=== PATIENT | male | born 1945 | race Caucasian/White ===

== ENCOUNTER 2016-08-01 08:31 | Inpatient (IN) | payer MEDICARE, BC ==
[2016-08-01] MEDS ORDERED: Dextrose 5%-Lactated Ringers 1,000 ML IV SCH (08:45)
[2016-08-01] MEDS ORDERED: ceFAZolin 2 GM in Sodium Chloride 0.9% 100 ML IV ONE (09:45)
[2016-08-01] MEDS ORDERED: Naloxone 0.4 MG/ML SDV IVPUSH PRN (11:24)
[2016-08-01] MEDS ORDERED: HYDROmorphone/Normal Saline 15 MG/30 ML PCA IV PRN (11:24)
[2016-08-01] MEDS ORDERED: Neostigmine Methylsulfate 1 MG/ML 5 ML Syringe ONE (11:48)
[2016-08-01] MEDS ORDERED: Ondansetron 4 MG/2 ML SDV ONE (11:48)
[2016-08-01] MEDS ORDERED: Propofol 200 MG/20 ML SDV ONE (11:48)
[2016-08-01] MEDS ORDERED: Dexamethasone 4 MG/ML SDV ONE (11:48)
[2016-08-01] MEDS ORDERED: Succinylcholine/Normal Saline 200 MG/10 ML Syringe ONE (11:48)
[2016-08-01] MEDS ORDERED: fentaNYL 250 MCG/5 ML SDV ONE ×2 (11:48→12:39)
[2016-08-01] MEDS ORDERED: Rocuronium 50 MG/5 ML Vial ONE (11:48)
[2016-08-01] MEDS: ceFAZolin 2 GM in Sodium Chloride 0.9% 50 ML IV ONE ×2 (13:23→17:36)
[2016-08-01] MEDS ORDERED: Midazolam 1 MG/ML 2 ML SDV ONE (13:30)
[2016-08-01] MEDS ORDERED: Lactated Ringers 1,000 ML ONE (13:50)
[2016-08-01] MEDS ORDERED: Naloxone 0.4 MG/ML SDV ONE (15:38)
[2016-08-01] MEDS ORDERED: Ondansetron 4 MG/2 ML SDV IV PRN (16:53)
[2016-08-01] MEDS ORDERED: LORazepam 0.5 MG Tab PO PRN (16:55)
[2016-08-01] MEDS: Magnesium Sulfate/Water 2 GM in Premix Bag 1 BAG IV SCH ×2 (17:55→23:21)
[2016-08-01] MEDS: Dextrose 5%-Lactated Ringers 1,000 ML IV SCH (17:56)
[2016-08-01] MEDS: ceFAZolin 2 GM in Sodium Chloride 0.9% 50 ML IV SCH (21:22)
[2016-08-01] MEDS ORDERED: Labetalol 20 MG/4 ML Syringe IVPUSH PRN (21:36)
[2016-08-02] MEDS: Dextrose 5%-Lactated Ringers 1,000 ML IV SCH ×3 (01:02→19:19)
[2016-08-02] MEDS: ceFAZolin 2 GM in Sodium Chloride 0.9% 50 ML IV SCH ×2 (04:37→14:58)
[2016-08-02] MEDS: Magnesium Sulfate/Water 2 GM in Premix Bag 1 BAG IV SCH ×4 (05:57→23:04)
[2016-08-02] MEDS ORDERED: Acetaminophen/HYDROcodone 325-5 MG Tab PO PRN (07:14)
[2016-08-02] MEDS ORDERED: Acetaminophen 325 MG Tab PO PRN (07:18)
[2016-08-02] MEDS ORDERED: Hydrochlorothiazide 25 MG Tab PO SCH (09:00)
[2016-08-02] MEDS: Doxazosin 4 MG Tab PO SCH (09:21)
[2016-08-02] MEDS: Losartan 50 MG Tab PO SCH (09:22)
--- NOTE | 2016-08-02 11:02 | PN ---
DATE OF SERVICE: 08/02/2016 SUBJECTIVE: Lucius reports his pain is controlled. The most pain he has had is in his right arm at the IV site. Vital signs have been stable. Calcium this morning was 11.8, down from 14 prior to surgery. He denies any tingling in his perioral area. Pain is controlled. Blood pressure has been slightly elevated with the highest being 156/96. This has come down nicely. He is voiding without difficulty. REVIEW OF SYSTEMS: Remainder of review of systems negative for any pertinent positives and negatives. OBJECTIVE: GENERAL: Lucius Bautista is a pleasant 71-year-old male. VITAL SIGNS: TPR is 96.8, 69, 16, blood pressure is 129/82. HEENT: Pressure dressing remains to be over his incision site around his neck. The dressing was left on for closer to 24 hours. Voice is strong. There is no hoarseness. HEART: Regular rate and rhythm. LUNGS: Clear. EXTREMITIES: There is no peripheral edema. ASSESSMENT: Parathyroid exploration with resection of left segment of parathyroid adenoma with frozen section for first-degree parathyroid adenoma involving left segment of the parathyroid gland, date of surgery 08/01/2016. PLAN: Discontinue DATA COLLECTION TECHNICIAN, discontinue continuous pulse ox. Check CMP in a.m. [place] 5/325 mg 1 to 2 every 4 hours p.r.n. pain. On regular diet. May choose what he wants, but no hard and crunchy foods. On Tylenol 650 mg q.6 hours p.r.n. lesser pain. Dressing off. We will evaluate p.r.n. or in a.m. Piper Scott PA-C /[id number]
[2016-08-03] MEDS: Dextrose 5%-Lactated Ringers 1,000 ML IV SCH (05:21)
[2016-08-03] MEDS: Magnesium Sulfate/Water 2 GM in Premix Bag 1 BAG IV SCH ×4 (05:22→18:07)
[2016-08-03] MEDS ORDERED: Calcium Carbonate 500 MG Tab.Chew PO PRN (07:57)
[2016-08-03] MEDS: Doxazosin 4 MG Tab PO SCH (08:49)
[2016-08-03] MEDS: Pantoprazole 40 MG Tab.CR PO SCH (08:50)
[2016-08-03] MEDS: Losartan 50 MG Tab PO SCH (08:50)
[2016-08-03] MEDS: Phosphorus #1 250 MG Tab PO SCH ×3 (10:06→21:03)
--- NOTE | 2016-08-03 14:01 | PCM.PN ---
- General Info Date of Service: 08/03/16 - Review of Systems General: Reports: No Symptoms HEENT: Reports: no symptoms Pulmonary: Reports: no symptoms Cardiovascular: Reports: No Symptoms Gastrointestinal: Reports: No symptoms Genitourinary: Reports: no symptoms Musculoskeletal: Reports: no symptoms Skin: Reports: no symptoms - Patient Data Vitals - most recent: Last Vital Signs Temp 98.1 F 08/03/16 11:13 Pulse 72 08/03/16 11:13 Resp 18 08/03/16 11:13 BP 125/79 08/03/16 11:13 Pulse Ox 98 08/03/16 11:13 Weight - most recent: 145 lb I&O - last 24 hours: Intake & Output 08/02/16 08/03/16 08/03/16 22:59 06:59 14:59 Intake Total 1302 1428 639 Output Total 1450 1025 350 Balance -148 403 289 Lab Results last 24 hrs: Laboratory Results - last 24 hr 08/03/16 Range/Units 04:25 Sodium 145 (140-148) mmol/L Potassium 3.5 L (3.6-5.2) mmol/L Chloride 111 H (100-108) mmol/L Carbon Dioxide 25 (21-32) mmol/L Anion Gap 12.5 (5.0-14.0) mmol/L BUN 13 (7-18) mg/dL Creatinine 1.5 H (0.8-1.3) mg/dL Est Cr Clr Drug Dosing 43.24 mL/min Estimated GFR (MDRD) 46 L (>60) Glucose 108 H (74-106) mg/dL Calcium 10.5 H (8.5-10.1) mg/dL Phosphorus 2.5 (2.5-4.9) mg/dL Magnesium 2.7 H (1.8-2.4) mg/dL Total Bilirubin 0.6 (0.2-1.0) mg/dL AST 23 (15-37) U/L ALT 20 (12-78) U/L Alkaline Phosphatase 56 (46-116) U/L Total Protein 5.5 L (6.4-8.2) g/dL Albumin 2.7 L (3.4-5.0) g/dL Globulin 2.8 (2.3-3.5) g/dL Albumin/Globulin Ratio 1.0 L (1.2-2.2) Med Orders - Current: Current Medications Acetaminophen (Tylenol) 650 mg PO Q4H PRN PRN Reason: Pain Hydrocodone Bitart/Acetaminophen ([place] 325-5 Mg) 1 - 2 tab PO Q4H PRN PRN Reason: Pain Calcium Carbonate/Glycine (Tums) 500 mg PO ASDIRECTED PRN PRN Reason: HEARTBURN Doxazosin Mesylate (Cardura) 4 mg PO DAILY [facility] Last Admin: 08/03/16 08:49 Dose: 4 mg Dextrose/Lactated Ringer's (Dextrose 5%-Lactated Ringers) 1,000 mls @ 100 mls/ hr IV ASDIRECTED [facility] Last Admin: 08/03/16 05:21 Dose: 150 mls/hr Magnesium Sulfate 2 gm/ Premix 50 mls @ 25 mls/hr IV Q6H [facility] Stop: 08/04/16 13:59 Last Admin: 08/03/16 12:13 Dose: 25 mls/hr Labetalol HCl (Normodyne) 5 - 10 mg IVPUSH Q1H PRN; Protocol PRN Reason: Hypertension Lorazepam (Ativan) 0.5 mg PO Q6H PRN PRN Reason: ANXIETY Losartan Potassium (Cozaar) 50 mg PO DAILY [facility] Last Admin: 08/03/16 08:50 Dose: 50 mg Ondansetron HCl (Zofran) 4 mg IV Q4H PRN PRN Reason: N/V Pantoprazole Sodium (Protonix) 40 mg PO ACBREAKFAST [facility] Last Admin: 08/03/16 08:50 Dose: 40 mg Sodium Phosphate (Neutra-Phos) 500 mg PO QID [facility] Last Admin: 08/03/16 10:06 Dose: 500 mg Discontinued Medications Dexamethasone (Dexamethasone) Confirm Administered Dose 4 mg .ROUTE .STK-MED ONE Stop: 08/01/16 11:49 Fentanyl (Sublimaze) Confirm Administered Dose 250 mcg .ROUTE .STK-MED ONE Stop: 08/01/16 11:49 Fentanyl (Sublimaze) Confirm Administered Dose 500 mcg .ROUTE .STK-MED ONE Stop: 08/01/16 12:40 Glycopyrrolate () Confirm Administered Dose 1 mg .ROUTE .STK-MED ONE Stop: 08/01/16 11:49 Hydrochlorothiazide (Hydrochlorothiazide) 25 mg PO DAILY [facility] Last Admin: 08/02/16 09:22 Dose: 25 mg Hydromorphone HCl (Dilaudid Burn Nurse 15 Mg In Ns 30 Ml) 0 mg IV ASDIRECTED PRN; Protocol PRN Reason: Pain Last Admin: 08/01/16 12:58 Dose: 0.3 mg Dextrose/Lactated Ringer's (Dextrose 5%-Lactated Ringers) 1,000 mls @ 100 mls/ hr IV ASDIRECTED [facility] Last Admin: 08/01/16 09:50 Dose: 100 mls/hr Cefazolin Sodium 2 gm/ Sodium (Chloride) 50 mls @ 100 mls/hr IV ONETIME ONE Stop: 08/01/16 10:14 Last Admin: 08/01/16 17:36 Dose: Not Given Lactated Ringer's (Ringers, Lactated) Confirm Administered Dose 1,000 mls @ as directed .ROUTE .STK-MED ONE Stop: 08/01/16 13:51 Cefazolin Sodium 2 gm/ Sodium (Chloride) 50 mls @ 100 mls/hr IV Q8H VAN Stop: 08/02/16 13:29 Last Admin: 08/02/16 14:58 Dose: 100 mls/hr Midazolam HCl (Versed 1 Mg/Ml) Confirm Administered Dose 2 mg .ROUTE .STK-MED ONE Stop: 08/01/16 13:31 Naloxone HCl (Narcan) 0.1 mg IVPUSH Q2M PRN PRN Reason: Respiratory Distress Naloxone HCl (Narcan) Confirm Administered Dose 0.4 mg .ROUTE .STK-MED ONE Stop: 08/01/16 15:39 Neostigmine Methylsulfate (Neostigmine) Confirm Administered Dose 5 mg .ROUTE .STK-MED ONE Stop: 08/01/16 11:49 Ondansetron HCl (Zofran) Confirm Administered Dose 4 mg .ROUTE .STK-MED ONE Stop: 08/01/16 11:49 Propofol (Diprivan 20 Ml) Confirm Administered Dose 200 mg .ROUTE .STK-MED ONE Stop: 08/01/16 11:49 Rocuronium [place] (Zemuron) Confirm Administered Dose 50 mg .ROUTE .STK-MED ONE Stop: 08/01/16 11:49 Succinylcholine Chloride (Succinylcholine In Ns Pf) Confirm Administered Dose 200 mg .ROUTE .STBarnes & Noble-MED ONE Stop: 08/01/16 11:49 - Exam General: alert, oriented Lungs: Clear to auscultation, Normal respiratory effort Cardiovascular: Regular Rate, Regular Rhythm Abdomen: bowel sounds present, soft, no tenderness, no distension Extremities: no edema - Problem List Review Problem List Initiated/Reviewed/Updated: Yes - My Orders Last 24 Hours: My Active Orders 08/03/16 21:00 Potassium Chloride [Klor-Con M20] 20 meq PO BID - Plan Plan:: Assessment/Plan: #1. Hypercalcemia: Ca is down to 10.5. He has no complaints. S/P surgery condition stable. #2. Hypokalemia. Will supplement. #3. Hypertension. Stable. I stopped HCTZ
[2016-08-03] MEDS ORDERED: Magnesium Citrate Solution 296 ML Bottle PO ONE (18:04)
[2016-08-03] MEDS: Potassium Chloride 20 MEQ Tab.ER PO SCH (21:03)
[2016-08-04] MEDS: Phosphorus #1 250 MG Tab PO SCH (05:59)
[2016-08-04 07:24] VITALS: BP 139/84
[2016-08-04] MEDS: Pantoprazole 40 MG Tab.CR PO SCH (07:24)
[2016-08-04] MEDS: Doxazosin 4 MG Tab PO SCH (08:20)
[2016-08-04] MEDS: Losartan 50 MG Tab PO SCH (08:20)
[2016-08-04] MEDS: Potassium Chloride 20 MEQ Tab.ER PO SCH (08:21)
--- NOTE | 2016-08-04 09:11 | DISCH ---
ADMISSION DIAGNOSES: First-degree parathyroid adenoma, hypertension, anxiety, and hyperlipidemia. DISCHARGE DIAGNOSES: Parathyroid exploration with resection of left segment of parathyroid adenoma with frozen section for first-degree parathyroid adenoma involving left segment of the parathyroid gland. Date of surgery was 08/01/2016. HISTORY: Lucius Bautista is a 71-year-old male who presented to the clinic with elevated calcium. After preoperative evaluation and discussion of possible risks and possible complications, he wished to proceed with surgical procedure. HOSPITAL COURSE: Lucius had his surgery on 08/01/2016. He had no operative complications. On postop day 1, his potassium was 11.8; on postop day 2, it was 10.5; and on postop day 3, it was 10. His phosphorus was 2.2 and went down to 1.7, 2.5, and 3.9. Magnesium was 1.7. He has been active. Pain has been controlled. Feeling good. His voice is strong. There is no hoarseness noted. He is ready to be discharged to home on 08/04/2016. PHYSICAL EXAMINATION: GENERAL: Lucius Bautista is a 71-year-old male. VITAL SIGNS: Height is 5 feet 11 inches. Weight is 145 pounds. TPR 99.3, 66, 16, and blood pressure 139/84. HEENT: Negative. NECK: Incision, Steri-Strips are intact. There is no swelling, redness, or drainage at incision site. HEART: Regular rate and rhythm. LUNGS: Clear. ABDOMEN: Negative. EXTREMITIES: Negative for peripheral edema. DISPOSITION: Discharged to home. CONDITION: Stable and improving. FOLLOWUP APPOINTMENT: With Nehemiah Roman MD, at [facility], on 08/06/2016 at 9 a.m. He is to come at 8:15 for lab work to check a BMP, magnesium, and phosphorus, and see Dr. Roman at 9 a.m. HOME MEDICATIONS: Cardura 4 mg oral daily, Lasix 20 mg oral daily, Ativan 0.5 mg oral as directed p.r.n. anxiety, losartan (Cozaar) 25 mg daily, Klor-Con 20 mEq twice daily, and magnesium oxide 400 mg daily x1 month. DISCHARGE DIET: Usual diet as tolerated. Drink 8 to 10 glasses of water a day. ACTIVITY: No lifting greater than 10 pounds for 6 weeks. Shower/bathing, may shower. DISCHARGE INSTRUCTIONS: Notify provider for fever, increased pain, drainage, nausea, or vomiting. Wound incision care, keep site clean and dry. Special Instruction: If you develop any tingling around your mouth and lips, take 2 Tums every 2 hours until it goes away and call clinic at [phone].
--- NOTE | 2016-08-04 13:44 | PN ---
DATE OF SERVICE: 08/03/2016 The patient has been afebrile with stable vital signs. The calcium has come down to 10.4 today from 14 preoperatively, and overall, he is not having symptoms at this point. His phosphate is on the low side of. There is no IV phosphate available at this point, so we will give Neutra-Phos, a total of 8 tablets during 24 hours, each having 8 mL of phosphate, i.e he will actually be getting around 64 mL of that today. We will recheck calcium and phosphate in the morning. He will continue his magnesium supplementation. At this point, he certainly can be started on TUMS as needed for heartburn. We will also start him on Protonix. Nehemiah Roman MD /[id number]
--- NOTE | 2016-08-06 08:03 | OR ---
DATE OF PROCEDURE: 08/01/2016 PREOPERATIVE DIAGNOSIS: Primary hyperparathyroidism. POSTOPERATIVE DIAGNOSES: 1. Primary hyperparathyroidism with parathyroid adenoma involving left superior parathyroid gland. 2. Ectopic thyroid tissue, left lower neck, suggestive of thyroid adenoma on frozen section. OPERATIVE PROCEDURES: 1. Parathyroid exploration with;. a. Excision of left superior parathyroid adenoma (09588). b. Excision of ectopic thyroid tissue suggestive of adenoma on frozen section, left lower neck (13531). ANESTHESIA: General. CHUTE LOADER: Piper Scott PA-C and [employer] student. INDICATIONS FOR PROCEDURE: This is a 71-year-old presenting with a strikingly high calcium in 15 range with an intact parathyroid level of over 390. Workup for the site of this has thus far been negative. The plan is to proceed with a parathyroid exploration with, hopefully, identification of parathyroid adenoma and/or hyperplasia with surgical treatment as indicated. The extreme calcium and parathyroid hormone levels were suggestive of possibility of malignancy as well, although imaging has certainly not made that a likelihood. Potential risks including bleeding; infection; injury to the structures in the areas such as recurrent laryngeal nerve; possibility of persistent hyperparathyroidism or hypoparathyroidism postoperatively; along with remote possibility of cardiopulmonary, septic, or hemorrhagic complications leading to were discussed. Likewise, the possibility that the procedure may not be efficacious in terms of controlling the hyperparathyroidism, were gone over and the patient wishes to proceed. DETAILS OF PROCEDURE: The patient was taken to the operating room and placed in a supine position with the neck extended. The upper chest and neck areas were prepped and draped after general endotracheal anesthetic was induced. A transverse collar incision was made and carried down through the skin and subcutaneous tissues, into the platysma layers. Subplatysmal flaps were then raised superiorly and inferiorly, and the strap muscles were divided in the midline. Beginning on the left side, the inferior thyroid vein and inferior thyroid artery branches on to the midportion of the left thyroid lobe were divided with Harmonic scalpel. This allowed medial mobilization of that area of what appeared to be a probable parathyroid adenoma, there was a roughly a pear or grape-sized and reddish nodule. This was located distinctly apart from the thyroid gland, located somewhat lateral and inferior to the lower pole on the left side. This was excised using Harmonic scalpel and frozen section was suggestive of ectopic thyroid tissue containing adenomatous-type material. Bilateral frozen sections are being processed of what appeared to be a normal- appearing parathyroid in the left lobe area behind the thyroid gland was identified. As one dissected further up, there was an enlarged area of parathyroid tissue. This was of a size consistent with an adenoma and was excised with a Harmonic scalpel. Frozen section on this was consistent with hyperplastic parathyroid tissue. One parathyroid on right side was subsequently dissected free and identified to be small and normal as well. At that point, it was felt best to not do further dissection so as to minimize postoperative hypoparathyroidism. The area of dissection was inspected and drainage was felt not to be necessary. The midline fascia was approximated with a 3-0 Vicryl stitch, the platysmal layer with 4-0 Vicryl stitch, and the skin with a 5-0 Vicryl subcuticular stitch. Steri- Strips were applied. The patient was taken to the recovery room in satisfactory condition. Physician office assistant, Piper Scott, played an essential role in assisting in this case, helping to position the patient, retract structures as needed, as well as suturing and cutting sutures when indicated. Her presence improved patient safety and decreased the operative time. Nehemiah Roman MD /[id number]
== END 2016-08-04 09:14 | disposition home or self-care (01) | DRG 627 ==
LOC: JP.SDS 08:31 → JP.SDSSCHI 08:31 → EDSTATUS 12:15 → JP.2SS 16:26
PROVIDERS: ADMIT Surgery; ATTEND Surgery
PROC: 0GBQ0ZX Excision of Multiple Parathyroid Glands, Open Approach, Diagnostic (ICD-10-PCS; principal; 2016-08-01)
PROC: 0GBM0ZZ Excision of Left Superior Parathyroid Gland, Open Approach (ICD-10-PCS; principal; 2016-08-01)
DX: D35.1 Benign neoplasm of parathyroid gland (principal); I10 Essential (primary) hypertension; F41.9 Anxiety disorder, unspecified; E78.5 Hyperlipidemia, unspecified; E87.6 Hypokalemia; E21.0 Primary hyperparathyroidism
CPT/HCPCS: 36415; 80048; 80053; 83735; 84100; 85027; 88305; 88331; 88333; 88334; 93005; A9270-GY; J0690; J1100; J1170; J2250; J2310; J2405; J2704; J3010; J3475; J7042; J7050; J7120

== ENCOUNTER 2018-08-05 07:43 | Day surgery (SDC) | payer BC, MEDICARE ==
[2018-08-05] MEDS ORDERED: fentaNYL 100 MCG/2 ML SDV ONE (08:23)
[2018-08-05] MEDS ORDERED: Midazolam 1 MG/ML 2 ML SDV ONE (08:23)
[2018-08-05] MEDS ORDERED: Propofol 200 MG/20 ML SDV ONE (08:23)
[2018-08-05] MEDS ORDERED: Sodium Chloride 0.9% 1,000 ML IV SCH (09:00)
--- NOTE | 2018-08-05 11:04 | PROC ---
DATE OF PROCEDURE: SURGEON: Fili Richter MD 08/05/2018 INDICATION: Lucius is a 73-year-old male, comes in for a colonoscopy. The risks and benefits were explained to the patient to have a colonoscopy. TECHNIQUE: Rectal exam reveals a prostate of grade 3/6, symmetrical and soft. No other obvious pathology noted. The tube was placed into the rectum, and we got to 15 cm. Were unable to advance the tube further. We then removed the scope and took off the endo cuff and put the scope back in, and we got through a narrowed area, where there were multiple diverticula. We advanced the scope, did get to the cecum. Upon retraction of the tube, we noted a few diverticula in the descending colon. At the site of the multiple diverticula, noted a 3-mm polyp. This was biopsied multiple times. Air was withdrawn from the colon, and the tube was removed. The patient tolerated the procedure well. PREOPERATIVE DIAGNOSIS: Screening colonoscopy. POSTOPERATIVE DIAGNOSIS: Diverticula and narrowed opening in the sigmoid colon, Polyp at rectum. Biopsy report pending. I will speak with him once the pathology report is completed. Fili Richter MD /[id number] MTDD
[2018-08-05 11:20] VITALS: BP 119/79
== END 2018-08-05 11:25 | disposition home or self-care (01) ==
LOC: JP.SDS 07:43
PROVIDERS: ATTEND Internal Medicine
DX: Z12.11 Encounter for screening for malignant neoplasm of colon (principal); D12.8 Benign neoplasm of rectum; K57.30 Diverticulosis of large intestine without perforation or abscess without bleeding; K56.699 Other intestinal obstruction unspecified as to partial versus complete obstruction; I10 Essential (primary) hypertension; F41.9 Anxiety disorder, unspecified
CPT/HCPCS: 45380; J2250; J2704; J3010; J7030

== ENCOUNTER 2018-11-22 14:39 | Emergency (ER) | payer MEDICARE ==
[2018-11-22] MEDS ORDERED: LORazepam 2 MG/ML SDV IVPUSH ONE (14:51)
--- NOTE | 2018-11-22 14:55 | EDM.PDOC ---
ED HPI GENERAL MEDICAL PROBLEM - General Chief Complaint: Cardiovascular Problem Stated Complaint: MEDICAL [facility] Time Seen by Provider: 11/22/18 14:40 Source of Information: Reports: Patient, EMS History Limitations: Reports: No Limitations - History of Present Illness INITIAL COMMENTS - FREE TEXT/NARRATIVE: 73 year old chronic alcoholic presents to ER after syncopal episode this am while taking out boats and d[place] this [place]. Patient was working with a friend and brother today. Patient states he takes a multi vitamin daily and did take this am. Patient believes he was sitting on the dock and slumped to the side. He denies any symptoms before passing out this afternoon, denies chest pain, SOB, headache but admits nausea and lightheadedness. Patient admits to drinking alcohol approximately 6 (double shots per day). Patient is due to chronic alcohol use. Patient denies any current symptoms or concerns at this time. Patient is obviously intoxicated with disconjugate daze , slurring speech and unsteady gait. Patient smells of alcohol and drink of choice is Vodka, no brand preference they are all the same. - Related Data Allergies Allergy/AdvReac Type Severity Reaction Status Date / Time No Known Allergies Allergy Verified 11/22/18 15:04 Home Meds: Home Meds Doxazosin [Cardura] 4 mg PO DAILY 07/31/16 [History] LORazepam [Ativan] 0.5 mg PO ASDIRECTED PRN 07/31/16 [History] Losartan [Cozaar] 50 mg PO DAILY 07/31/16 [History] Allopurinol [Zyloprim] 150 mg PO DAILY 08/03/18 [History] Past Medical History Cardiovascular History: Reports: Hypertension, SOB on Exertion Respiratory History: Reports: SOB Gastrointestinal History: Reports: None Musculoskeletal History: Reports: Gout Psychiatric History: Reports: Anxiety Endocrine/Metabolic History: Reports: Other (See Below) Other Endocrine/Metabolic History: thyroid" somthing wrong with" per pt - Infectious Disease History Infectious Disease History: Reports: Chicken Pox - Past Surgical History HEENT Surgical History: Reports: Oral Surgery, Tonsillectomy Cardiovascular Surgical History: Reports: None Respiratory Surgical History: Reports: None GI Surgical History: Reports: Colonoscopy, Hernia, Abdominal, Hernia Repair/ Other, Other (See Below) Other GI Surgeries/Procedures: with mesh Endocrine Surgical History: Reports: Thyroid Biopsy Musculoskeletal Surgical History: Reports: None Social & Family History - Caffeine Use Caffeine Use: Reports: None ED ROS GENERAL - Review of Systems Review Of Systems: ROS reveals no pertinent complaints other than HPI. ED EXAM, NEURO - Physical Exam Exam: See Below Exam Limited By: No Limitations General Appearance: Alert, Thin, Other (no pain, obviously intoxicated with slurred speech and insteady gait/movements. ) Eye Exam: Bilateral Eye: EOMI, PERRL Ears: Normal External Exam, Normal Canal, Hearing Grossly Normal, Normal TMs Nose: Normal Inspection, Normal Mucosa Throat/Mouth: Normal Inspection, Normal Lips, Normal Teeth, Normal Gums, Normal Oropharynx, Normal Voice, No Airway Compromise, Other (dry and erythematous ) Head Exam: Normocephalic Neck: Normal Inspection, Supple, Non-Tender, Full Range of Motion Respiratory/Chest: No Respiratory Distress, Lungs Clear, Normal Breath Sounds, No Accessory Muscle Use, Chest Non-Tender Cardiovascular: Normal Peripheral Pulses, Regular Rate, Rhythm GI/Abdominal: Normal Bowel Sounds, Soft, Non-Tender. No: Distended, Guarding, Rigid, Rebound, Tender Neurological: Alert, Normal Mood/Affect (intoxicated), CN II-XII Intact, No Motor/Sensory Deficits (focal but general delayed response and insteady movements ), Oriented x 3, Abnormal Gait, Abnormal Motor, Difficulty Walking. No: Straight Leg Raise (L), Straight Leg Raise (R) Back Exam: Normal Inspection, Full Range of Motion, NT Extremities: Normal Inspection, Normal Range of Motion, Non-Tender, No Pedal Edema, Normal Capillary Refill Psychiatric: Normal Affect (intoxicated), Normal Mood (jovial) Skin Exam: Warm, Dry, Intact, Normal Color, No Rash EKG INTERPRETATION EKG Date: 11/22/18 Time: 15:29 Rhythm: NSR Rate (Beats/Min): 84 [place]: Normal P-Wave: Present QRS: Normal ST-T: Normal QT: Normal Comparison: Change From Previous EKG (resoluted of ST elevated in lateral LEADS) *Q Meaningful Use (ADM) - VTE *Q VTE Mechanical Contraindications *Q: At Risk for Falls - VTE Risk Assess *Q Each Risk Factor Represents 2 Points: Age 60 - 74 Years Total Score 2 Point Risk Factors: 2 Course - Vital Signs Last Recorded V/S: Last Vital Signs Temp 36 C 11/22/18 15:02 Pulse 66 11/22/18 15:56 Resp 16 11/22/18 15:02 BP 155/71 H 11/22/18 15:56 Pulse Ox 98 11/22/18 15:56 - Orders/Labs/Meds Orders: Active Orders 24 hr Category Date Time Status Cardiac Monitoring [RC] .As Directed Care 11/22/18 14:48 Active EKG Documentation Completion [RC] ASDIRECTED Care 11/22/18 14:50 Active EKG 12 Lead [EK] Urgent Ther 11/22/18 14:49 Ordered Labs: Laboratory Tests 11/22/18 11/22/18 11/22/18 Range/Units 15:00 15:00 15:00 WBC 7.9 (4.5-11.0) K/uL RBC 3.84 L (4.30-5.90) M/uL Hgb 13.6 (12.0-15.0) g/dL Hct 39.6 L (40.0-54.0) % MCV 103 H (80-98) fL MCH 35 H (27-31) pg MCHC 34 (32-36) % Plt Count 203 (150-400) K/uL Neut % (Auto) 77 H (36-66) % Lymph % (Auto) 13 L (24-44) % [place] % (Auto) 9 H (2-6) % Eos % (Auto) 1 L (2-4) % Baso % (Auto) 0 (0-1) % D-Dimer, Quantitative 411 H (0.0-400.0) ng/mL Sodium 139 L (140-148) mmol/L Potassium 3.8 (3.6-5.2) mmol/L Chloride 104 (100-108) mmol/L Carbon Dioxide 25 (21-32) mmol/L Anion Gap 13.8 (5.0-14.0) mmol/L BUN 12 (7-18) mg/dL Creatinine 1.4 H (0.8-1.3) mg/dL Est Cr Clr Drug Dosing 48.13 mL/min Estimated GFR (MDRD) 50 L (>60) Glucose 98 (74-106) mg/dL Calcium 11.3 H (8.5-10.1) mg/dL Total Bilirubin 0.6 (0.2-1.0) mg/dL Direct Bilirubin 0.22 H (0.0-0.2) mg/dL Indirect Bilirubin 0.38 AST 107 H D (15-37) U/L ALT 89 H (12-78) U/L Alkaline Phosphatase 65 (46-116) U/L Troponin I (0.000-0.056) ng/mL Total Protein 6.8 (6.4-8.2) g/dL Albumin 3.6 (3.4-5.0) g/dL Globulin 3.2 (2.3-3.5) g/dL Albumin/Globulin Ratio 1.1 L (1.2-2.2) Lipase (73-393) U/L Urine Color (YELLOW) Urine Appearance (CLEAR) Urine pH (5.0-8.0) Ur Specific [place] (1.008-1.030) Urine Protein (NEGATIVE) mg/dL Urine Glucose (UA) (NEGATIVE) mg/dL Urine Ketones (NEGATIVE) mg/dL Urine Occult Blood (NEGATIVE) Urine Nitrite (NEGATIVE) Urine Bilirubin (NEGATIVE) Urine Urobilinogen (0.2-1.0) EU/dL Ur Leukocyte Esterase (NEGATIVE) Urine RBC (0-5) Urine WBC (0-5) Ur Epithelial Cells Amorphous Sediment Urine Bacteria Urine Mucus Urine Other Ethyl Alcohol mg/dL 11/22/18 11/22/18 11/22/18 Range/Units 15:00 15:00 15:00 WBC (4.5-11.0) K/uL RBC (4.30-5.90) M/uL Hgb (12.0-15.0) g/dL Hct (40.0-54.0) % MCV (80-98) fL MCH (27-31) pg MCHC (32-36) % Plt Count (150-400) K/uL Neut % (Auto) (36-66) % Lymph % (Auto) (24-44) % [place] % (Auto) (2-6) % Eos % (Auto) (2-4) % Baso % (Auto) (0-1) % D-Dimer, Quantitative (0.0-400.0) ng/mL Sodium (140-148) mmol/L Potassium (3.6-5.2) mmol/L Chloride (100-108) mmol/L Carbon Dioxide (21-32) mmol/L Anion Gap (5.0-14.0) mmol/L BUN (7-18) mg/dL Creatinine (0.8-1.3) mg/dL Est Cr Clr Drug Dosing mL/min Estimated GFR (MDRD) (>60) Glucose (74-106) mg/dL Calcium (8.5-10.1) mg/dL Total Bilirubin (0.2-1.0) mg/dL Direct Bilirubin (0.0-0.2) mg/dL Indirect Bilirubin AST (15-37) U/L ALT (12-78) U/L Alkaline Phosphatase (46-116) U/L Troponin I < 0.017 (0.000-0.056) ng/mL Total Protein (6.4-8.2) g/dL Albumin (3.4-5.0) g/dL Globulin (2.3-3.5) g/dL Albumin/Globulin Ratio (1.2-2.2) Lipase 223 (73-393) U/L Urine Color (YELLOW) Urine Appearance (CLEAR) Urine pH (5.0-8.0) Ur Specific [place] (1.008-1.030) Urine Protein (NEGATIVE) mg/dL Urine Glucose (UA) (NEGATIVE) mg/dL Urine Ketones (NEGATIVE) mg/dL Urine Occult Blood (NEGATIVE) Urine Nitrite (NEGATIVE) Urine Bilirubin (NEGATIVE) Urine Urobilinogen (0.2-1.0) EU/dL Ur Leukocyte Esterase (NEGATIVE) Urine RBC (0-5) Urine WBC (0-5) Ur Epithelial Cells Amorphous Sediment Urine Bacteria Urine Mucus Urine Other Ethyl Alcohol 159 mg/dL 11/22/18 Range/Units 16:44 WBC (4.5-11.0) K/uL RBC (4.30-5.90) M/uL Hgb (12.0-15.0) g/dL Hct (40.0-54.0) % MCV (80-98) fL MCH (27-31) pg MCHC (32-36) % Plt Count (150-400) K/uL Neut % (Auto) (36-66) % Lymph % (Auto) (24-44) % [place] % (Auto) (2-6) % Eos % (Auto) (2-4) % Baso % (Auto) (0-1) % D-Dimer, Quantitative (0.0-400.0) ng/mL Sodium (140-148) mmol/L Potassium (3.6-5.2) mmol/L Chloride (100-108) mmol/L Carbon Dioxide (21-32) mmol/L Anion Gap (5.0-14.0) mmol/L BUN (7-18) mg/dL Creatinine (0.8-1.3) mg/dL Est Cr Clr Drug Dosing mL/min Estimated GFR (MDRD) (>60) Glucose (74-106) mg/dL Calcium (8.5-10.1) mg/dL Total Bilirubin (0.2-1.0) mg/dL Direct Bilirubin (0.0-0.2) mg/dL Indirect Bilirubin AST (15-37) U/L ALT (12-78) U/L Alkaline Phosphatase (46-116) U/L Troponin I (0.000-0.056) ng/mL Total Protein (6.4-8.2) g/dL Albumin (3.4-5.0) g/dL Globulin (2.3-3.5) g/dL Albumin/Globulin Ratio (1.2-2.2) Lipase (73-393) U/L Urine Color Yellow (YELLOW) Urine Appearance Clear (CLEAR) Urine pH 7.0 (5.0-8.0) Ur Specific [place] 1.015 (1.008-1.030) Urine Protein Negative (NEGATIVE) mg/dL Urine Glucose (UA) Negative (NEGATIVE) mg/dL Urine Ketones Negative (NEGATIVE) mg/dL Urine Occult Blood Negative (NEGATIVE) Urine Nitrite Negative (NEGATIVE) Urine Bilirubin Negative (NEGATIVE) Urine Urobilinogen 0.2 (0.2-1.0) EU/dL Ur Leukocyte Esterase Negative (NEGATIVE) Urine RBC 0-5 (0-5) Urine WBC Not seen (0-5) Ur Epithelial Cells Rare Amorphous Sediment Not seen Urine Bacteria Rare Urine Mucus Few Urine Other Ethyl Alcohol mg/dL Meds: Medications Discontinued Medications Generic Name Dose Route Start Last Admin Trade Name Freq PRN Reason Stop Dose Admin Sodium Chloride 1,000 mls @ 500 mls/hr 11/22/18 15:00 11/22/18 15:33 Normal Saline IV 500 mls/hr ASDIRECTED VAN Administration Sodium Chloride 1,000 mls @ 500 mls/hr 11/22/18 15:00 Normal Saline IV ASDIRECTED VAN Lorazepam 2 mg 11/22/18 14:51 11/22/18 14:55 Ativan IVPUSH 11/22/18 14:52 Not Given ONETIME ONE - Radiology Interpretation Free Text/Narrative:: CT Head: No evidence of acute intracranial abnormality. Remote left lentiform lacunar infarcts. Moderate atrophy and chronic small vessel ischemic changes. CXR PA/LAT: No acute cardiopulmonary disease noted. Cardiomegaly and chronic changes noted. - Re-Assessments/Exams Free Text/Narrative Re-Assessment/Exam: Patient updated regarding CT Head, CXR and blood test results. Renal function is worse than previous, anemia noted with high RBC Indices likely malnourishment (more Vit B needed). Patient was given IVF and offered a meal. Patient's shaking is much improved after received IV Ativan for alcohol withdrawal symptoms. Patient is anxious to go home once ride available. 11/22/18 16:33 Departure - Departure Time of Disposition: 17:16 Disposition: Home, Self-Care 01 Clinical Impression: Alcohol abuse, Alcohol withdrawal, Dehydration, Renal insufficiency - Discharge Information Instructions: Alcohol Use Disorder, Near-Syncope, Food Basics for Chronic Kidney Disease, Alcohol Withdrawal Syndrome, Alcohol Abuse and Nutrition, Delirium Tremens, Dehydration, Adult Referrals: PCP,None [Primary Care Provider] - Forms: ED Department Discharge Additional Instructions: 1. Increase fluid intake. 2. Improve dietary intake of Vit B 1 and 12. 3. Contact PCP for recheck in 3-5 days to follow-up regarding ER visit. 4. Return to ER if headache, Shortness of breath, chest pain, confusion or new symptoms concerns. 5. Return to ER or go to local alcohol Detox facility if you desire treatment for alcoholism. 6. Family/Friend must lemon picker up to ensure your safety over the next 24hrs and return to ER if concerns. 7. No acute concerning findings noted today with work-up completed. - Problem List & Annotations (1) Alcohol abuse SNOMED Code(s): 81328456 Code(s): F10.10 - ALCOHOL ABUSE, UNCOMPLICATED Status: Acute (2) Alcohol withdrawal SNOMED Code(s): 070151661 Code(s): F10.239 - ALCOHOL DEPENDENCE WITH WITHDRAWAL, UNSPECIFIED Status: Acute (3) Dehydration SNOMED Code(s): 89191667 Code(s): E86.0 - DEHYDRATION Status: Acute (4) Renal insufficiency SNOMED Code(s): 089477678, 488311891 Code(s): N28.9 - DISORDER OF KIDNEY AND URETER, UNSPECIFIED Status: Acute (5) Anemia SNOMED Code(s): 581924752 Code(s): D64.9 - ANEMIA, UNSPECIFIED Status: Acute - My Orders Last 24 Hours: My Active Orders 11/22/18 14:48 Cardiac Monitoring [RC] .As Directed 11/22/18 14:49 EKG 12 Lead [EK] Urgent 11/22/18 14:50 EKG Documentation Completion [RC] ASDIRECTED - Assessment/Plan Last 24 Hours: My Active Orders 11/22/18 14:48 Cardiac Monitoring [RC] .As Directed 11/22/18 14:49 EKG 12 Lead [EK] Urgent 11/22/18 14:50 EKG Documentation Completion [RC] ASDIRECTED
[2018-11-22] MEDS ORDERED: Sodium Chloride 0.9% 1,000 ML IV SCH ×2 (15:00)
--- NOTE | 2018-11-22 15:35 | CT ---
Head wo Cont: 11/22/2018 3:04 PM INDICATION: syncope without fall COMPARISON: No relevant priors TECHNIQUE: Axial images from skull base to vertex without the use of IV contrast. Coronal and sagittal reformats were obtained and reviewed FINDINGS: No acute intracranial abnormality. Specifically, there is no evidence of acute infarct, hemorrhage, hydrocephalus, mass, mass effect, midline shift, or extra-axial collections. Remote left lentiform lacunar infarcts. Moderate generalized cerebral and cerebellar atrophy. Moderate hypoattenuation in the subcortical and periventricular white matter, compatible with chronic small vessel ischemic changes. No acute findings involving the orbits. Paranasal sinuses and mastoid air cells are clear. Calvarium is intact. IMPRESSION: No evidence of acute intracranial abnormality. Remote left lentiform lacunar infarcts. Moderate atrophy and chronic small vessel ischemic changes. Please note that CT imaging has limited sensitivity for detection of early ischemic changes, and further assessment with MRI could be helpful in the appropriate clinical setting.
--- NOTE | 2018-11-22 15:37 | CR ---
Chest 2V: 11/22/2018 3:10 PM INDICATION: syncope COMPARISON: Chest CT performed 07/25/2016, chest Performed 04/10/2012. TECHNIQUE: 2 views of the chest were obtained. FINDINGS: Chronic interstitial changes are present. Old granulomatous disease is again identified. Lungs are otherwise clear. No evidence of consolidation or edema. Cardiomediastinal silhouette is moderately enlarged but stable in size and contour. No acute osseous abnormality. Remote right-sided rib fractures. IMPRESSION: No acute cardiopulmonary disease. Cardiomegaly and chronic changes.
[2018-11-22 16:15] VITALS: BP 155/71; PULSE 66
== END 2018-11-22 17:02 | disposition home or self-care (01) ==
LOC: JP.ED 14:39
DX: F10.239 Alcohol dependence with withdrawal, unspecified (principal); E86.0 Dehydration; N28.9 Disorder of kidney and ureter, unspecified; D64.9 Anemia, unspecified; I10 Essential (primary) hypertension; Z79.899 Other long term (current) drug therapy; Y90.6 Blood alcohol level of 120-199 mg/100 ml
CPT/HCPCS: 36415; 70450; 71046; 80048; 80076; 80320; 81001; 83690; 84484; 85025; 85379; 93005; 96360; 99284; J7030; G0480